=== PATIENT | female | born 1985 | race Caucasian/White ===

== ENCOUNTER 2016-06-27 21:48 | Emergency (ER) | payer SELFPAY ==
--- NOTE | ~2016-06-27 | CT16 ---
[facility] A Service [facility] RADIOLOGY TEXT RESULTS PATIENT: JIA MEAD LOCATION: SED : [birth year] UNIT #: [id number] AGE: [address]: Adiel Busch MD SEX: F ORDER DR: [id number] [address] [id number] [id number] E MR#: [id number] Acc #: [id number] NAME: JIA MEAD : 1985 SEX: F STUDY DATE/TIME: 06/27/2016 23:18 UNIT: SED ROOM: STUDY DESCRIPTION: CT Angio Chest for PE Attending Physician: Adiel Busch M.D. Ordering Physician: Adiel Busch M.D. Primary Care Physician: Primary Care Physician No MEDICAL IMAGING REPORT This report is preliminary unless electronic signature is present. EXAM CT chest PE protocol. HISTORY Sharp chest pain radiating through to back. Coughing. Patient states symptoms for 2 years prior cholecystectomy. TECHNIQUE This CT exam was performed with one or more of the following radiation dose reduction techniques: automatic control, adjustment of mA and/or kV according to patient size, and iterative reconstruction. FINDINGS Axial images performed through the chest following IV contrast. 3-D coronal and sagittal reconstructed images reviewed at a workstation. Pulmonary parenchyma suggest early emphysema. No effusions. No focal infiltrate or mass lesions. Trachea and bronchi unremarkable. Suboptimal opacification of the pulmonary arteries but no convincing evidence of pulmonary embolus. Aorta free of dissection or aneurysm. Heart size within normal limits. No adenopathy. Upper abdomen demonstrates post cholecystectomy change. Osseous structures soft tissues appear normal. IMPRESSION 1. No acute intrathoracic abnormality identified. In particular no evidence of embolus. 2. Pulmonary parenchymal changes suggesting early emphysema. Dictated by... Armando Morataya M.D. [facility] A Service [facility] RADIOLOGY TEXT RESULTS PATIENT: JIA MEAD LOCATION: SED : 84 UNIT #: [id number] AGE: [address]: Adiel Busch MD SEX: F ORDER DR: THIS IS AN ELECTRONICALLY VERIFIED REPORT Armando Morataya M.D. at 06/28/2016 5:18 AM PAULINE/nicole TD: 06/28/2016 03:15 JOB #: [id number] MEDICAL IMAGING REPORT Page 1 of 1
--- NOTE | ~2016-06-27 | EKG ---
PATIENT: JIA MEAD UNIT #: [id number] Ventricular Rate: 83 BPM Atrial Rate: 83 BPM P-R Interval: 128 ms QRS Duration: 92 ms Q-T Interval: 400 ms QTC Calculation(Bezet): 470 ms P [place]: 31 degrees Calculated R [place]: 73 degrees Calculated T [place]: 42 degrees Diagnosis Line: Normal sinus rhythm Diagnosis Line: Normal ECG Diagnosis Line: No previous ECGs available Diagnosis Line: Confirmed by GEMMA CHAN MD ([id number]) on 06/28/2016 Diagnosis Line: 8:05:31 PM INTERPRETING MD: ROCIO VILLARREAL
[~2016-06-27 21:48] MED LIST: LORTAB 5/500 TA1 TA1 PO; NEXIUM; PHENERGAN25 MG PO; PRILOSEC PO
[2016-06-27 22:41] LABS: BASOPHIL# 0.1 X10e3 (0-0.3); BASOPHIL% 0.5 % (0-2.5); EOSINOPHIL# 0.1 X10e3 (0-0.7); EOSINOPHIL% 0.7 % (0.0-7.0); HEMOGLOBIN 11.7 gm/dL (12.0-16.0); LYMPHOCYTE# 2.5 X10e3 (1.0-3.5); MEAN CELL VOLUME 77.5 FL (83-96); MEAN CORPUSCULAR HEMOGLOBIN 25.3 PG (28-34); MEAN CORPUSCULAR HGB CONC 32.6 g/dL (30-36); MEAN PLATELET VOLUME 8.7 FL (6.5-11.5); MONOCYTE# 0.8 X10e3 (0-1.0); MONOCYTE% 7.4 % (3.0-12.0); NEUTROPHIL# 7.4 X10e3 (1.5-7.1); NEUTROPHIL% 68.4 % (40-75); PLATELET COUNT 238 X10e3 (140-420); RED BLOOD COUNT 4.64 X10e (3.90-5.30); RED CELL DISTRIBUTION WIDTH 16.1 % (11.0-15.5); WHITE BLOOD COUNT 10.9 X10e3 (4.0-10.5)
[2016-06-27 22:42] LABS: DIFF IND NO
[2016-06-27 22:49] LABS: PROTHROMBIN TIME (PATIENT) 11.5 SECONDS (9.5-12.4)
[2016-06-27 22:51] LABS: AMPHETAMINE NEG (NEG); BARBITURATES NEG (NEG); BENZODIAZEPINES NEG (NEG); COCAINE NEG (NEG); MARIJUANA NEG (NEG); OPIATES NEG (NEG); TRICYCLIC ANTIDEPRESSANTS NEG (NEG); U METHADONE NEG (NEG)
[2016-06-27 22:57] LABS: PARTIAL THROMBOPLASTIN TIME 30.2 SECONDS (25.6-38.1)
[2016-06-27 22:58] LABS: ALBUMIN SERUM 4.3 g/dL (3.5-5.0); BILIRUBIN,TOTAL 0.4 mg/dL (0.2-2.0); BUN/CREATININE RATIO 21.66; CALCIUM SERUM 8.9 mg/dL (8.4-10.2); CREATININE SERUM 0.6 mg/dL (0.6-1.4); GLOM FILT RATE Estimated 120.6 mL/min (>60); POTASSIUM 3.4 mmol/L (3.5-5.1); PROTEIN TOTAL SERUM 7.6 g/dL (6.0-8.3)
[2016-06-27 23:17] LABS: POC - CKMB <1.0 ng/mL (0.0-7.9); POC - TROPONIN <0.05 ng/mL (<=0.05)
== END 2016-06-28 00:31 | disposition home or self-care (01) ==
LOC: SED 21:48
DX: R09.1 Pleurisy (principal); K21.9 Gastro-esophageal reflux disease without esophagitis; Z90.49 Acquired absence of other specified parts of digestive tract; F17.200 Nicotine dependence, unspecified, uncomplicated; Z88.1 Allergy status to other antibiotic agents
CPT/HCPCS: 36415; 71275; 80053; 80307; 82553; 84484; 84703; 85025; 85610; 85730; 93005; 99284; Q9967

== ENCOUNTER 2016-09-18 19:05 | Emergency (ER) | payer SELFPAY ==
[~2016-09-18] VITALS: Ht 165.1 cm; Wt 108.9 kg
--- NOTE | ~2016-09-18 | CR253 ---
[facility] A Service of [facility] RADIOLOGY TEXT RESULTS PATIENT: JIA MEAD LOCATION: SED : 84 UNIT #: [id number] AGE: [address]: MARCY PITTS SEX: F ORDER DR: [id number] [place] [id number] E MR#: [id number] Acc #: [id number] NAME: JIA MEAD : 1985 SEX: F STUDY DATE/TIME: 09/18/2016 20:33 UNIT: SED ROOM: STUDY DESCRIPTION: CR Tibia and Fibula 2 Views Rt Attending Physician: Marcy Pitts Aprn Ordering Physician: Marcy Pitts Aprn Primary Care Physician: No Primary Care Physician MEDICAL IMAGING REPORT This report is preliminary unless electronic signature is present. EXAM Right tibia and fibula, AP and lateral. HISTORY Leg pain after fall 4 days ago. FINDINGS AP and lateral views of the right tibia and fibula demonstrate normal bone alignment. No fracture or joint space narrowing or dislocation. Mild soft tissue swelling about the ankle. Small posterior calcaneal spur. IMPRESSION No acute findings. No fracture. Dictated by... David Brock M.D. THIS IS AN ELECTRONICALLY VERIFIED REPORT David Brock M.D. at 09/19/2016 4:32 PM RADHA/adrian TD: 09/18/2016 21:50 JOB #: [id number] MEDICAL IMAGING REPORT Page 1 of 1
--- NOTE | ~2016-09-18 | CR21 ---
[facility] A Service of [facility] RADIOLOGY TEXT RESULTS PATIENT: JIA MEAD LOCATION: SED : [birth year] UNIT #: [id number] AGE: [address]: MARCY PITTS SEX: F ORDER DR: [id number] [place] [id number] E MR#: [id number] Acc #: [id number] NAME: JIA MEAD : 1985 SEX: F STUDY DATE/TIME: 09/18/2016 20:33 UNIT: SED ROOM: STUDY DESCRIPTION: CR Ankle Min 3 Views Rt Attending Physician: Marcy Pitts Aprn Ordering Physician: Marcy Pitts Aprn Primary Care Physician: No Primary Care Physician MEDICAL IMAGING REPORT This report is preliminary unless electronic signature is present. EXAMINATION Three views of the right ankle. DATE 09/18/2016 HISTORY Right ankle pain and swelling since Friday after falling. COMPARISON Right ankle radiographs, 03/27/2016. FINDINGS Right ankle soft tissue swelling is thought to be present, greatest medially. No fracture or joint dislocation is seen. There is mild enthesophyte formation at the Achilles tendon insertion from the posterior calcaneus. IMPRESSION Right ankle soft tissue swelling. No acute osseous abnormality. Dictated by... Martha Lancaster M.D. THIS IS AN ELECTRONICALLY VERIFIED REPORT Martha Lancaster M.D. at 09/19/2016 9:49 PM SUKHDEV/adrian TD: 09/18/2016 22:24 JOB #: [id number] [facility] A Service of [facility] RADIOLOGY TEXT RESULTS PATIENT: JIA MEAD LOCATION: SED : [birth year] UNIT #: [id number] AGE: [address]: MARCY PITTS SEX: F ORDER DR: MEDICAL IMAGING REPORT Page 1 of 1
== END 2016-09-18 22:45 | disposition home or self-care (01) ==
LOC: SED 19:05
DX: S93.401A Sprain of unspecified ligament of right ankle, initial encounter (principal); S80.11XA Contusion of right lower leg, initial encounter; R07.9 Chest pain, unspecified; M25.511 Pain in right shoulder; K21.9 Gastro-esophageal reflux disease without esophagitis; F17.210 Nicotine dependence, cigarettes, uncomplicated; Z79.899 Other long term (current) drug therapy; Z88.8 Allergy status to other drugs, medicaments and biological substances; W17.89XA Other fall from one level to another, initial encounter
CPT/HCPCS: 29540; 73590; 73610; 90471; 90715; 99283